=== PATIENT | female | born 1960 | race Caucasian/White ===

== ENCOUNTER 2016-06-12 23:57 | Emergency (ER) | payer MEDICAID ==
[~2016-06-12] VITALS: Ht 167.6 cm; Wt 109.3 kg
[2016-06-12 23:58] VITALS: BP 142/83
== END 2016-06-13 01:15 | disposition home or self-care (01) ==
LOC: ED 23:59
DX: M75.21 Bicipital tendinitis, right shoulder (principal); I10 Essential (primary) hypertension; E11.9 Type 2 diabetes mellitus without complications

== ENCOUNTER 2016-08-25 13:29 | Emergency (ER) | payer MEDICAID ==
[~2016-08-25] VITALS: Ht 167.6 cm; Wt 103.0 kg
[2016-08-25] MEDS ORDERED: CYCLOBENZAPRINE 10 MG TABLET PO ONE (14:30)
[2016-08-25] MEDS ORDERED: CYCLOBENZAPRINE 10 MG TABLET ONE (14:37)
[2016-08-25] MEDS ORDERED: ASPI-496 PO (15:02)
[2016-08-25] MEDS ORDERED: CANA100T PO (15:02)
[2016-08-25] MEDS ORDERED: METF10002 PO (15:02)
[2016-08-25] MEDS ORDERED: LOVA10TA PO (15:02)
[2016-08-25] MEDS ORDERED: LISI5TAB7 PO (15:02)
[2016-08-25] MEDS ORDERED: LINA5TAB PO (15:02)
[2016-08-25 15:50] VITALS: BP 116/85
== END 2016-08-25 15:52 | disposition home or self-care (01) ==
LOC: ED 15:07
DX: M54.16 Radiculopathy, lumbar region (principal); G89.29 Other chronic pain; M54.5 Low back pain; I10 Essential (primary) hypertension; E11.9 Type 2 diabetes mellitus without complications; E78.5 Hyperlipidemia, unspecified